=== PATIENT | male | born 1995 | race Caucasian/White ===

== ENCOUNTER 2022-01-06 18:06 | Emergency (ER) | payer BC ==
[~2022-01-06] VITALS: Ht 175.3 cm; Wt 96.0 kg
[2022-01-06 18:17] VITALS: BP 122/78
[2022-01-06 22:38] LABS: CLARITY URINE CLEAR (CLEAR); COLOR URINE YELLOW (YELLOW); KETONES URINE NEGATIVE (NEGATIVE); LEUKOCYTE ESTERASE URINE NEGATIVE (NEGATIVE); NITRITE URINE NEGATIVE (NEGATIVE); OCCULT BLOOD URINE NEGATIVE (NEGATIVE); PH URINE 5.5 (4.5-8.0); PROTEIN URINE NEGATIVE (NEGATIVE); SPECIFIC GRAVITY URINE 1.025 (1.005-1.030); UROBILINOGEN URINE 0.2 E.U./dL (0.2-1.0)
[2022-01-06] MEDS ORDERED: IBUP-2028 MT (23:30)
== END 2022-01-07 00:02 | disposition home or self-care (01) ==
LOC: ER 18:20
DX: N50.3 Cyst of epididymis (principal); N43.3 Hydrocele, unspecified
CPT/HCPCS: 76870; 81003; 93976; 99284